=== PATIENT | male | born 1985 | race Caucasian/White ===

== ENCOUNTER 2016-04-12 17:28 | Emergency (ER) | payer MEDICAID ==
[~2016-04-12] VITALS: Ht 175.3 cm; Wt 123.5 kg
[2016-04-12 17:55] VITALS: Ht 175.3 cm; Wt 123.5 kg
[2016-04-12] MEDS ORDERED: AMO500 PO (19:01)
[2016-04-12] MEDS ORDERED: IBUP800T25 PO (19:02)
[2016-04-12] MEDS ORDERED: CARB15DR48 LEFT EAR (19:02)
--- NOTE | 2016-04-12 19:08 | ERD ---
ER Documentation Chief Complaint Date/Time DATE: 04/12/16 TIME: 19:03 Chief Complaint r ear pain HPI This is 31-year-old male who presents to the emergency room today complaining of right ear pain for the past 3 days. Patient states that one week ago he was cleaning ears with ear wax and a Skelaxin further. States that he did get some [id number] drops to remove the wax which has helped significantly however he is now complaining of ear pain for the past 3 days. States he also has some jaw pain. Denies any fevers or chills. ROS All systems reviewed and are negative except as per history of present illness. Medications Home Meds Active Scripts Ibuprofen* (Motrin*) 800 Mg Tab, 800 MG PO Q6, #30 TAB Prov:CADY HARDWICK PA-C 04/12/16 Carbamide Peroxide* (Debrox*) 6.5% - 15 Ml Drops, 10 DROP LEFT EAR BID, #1 BOTTLE Prov:CADY HARDWICK PA-C 04/12/16 Amoxicillin* (Amoxicillin*) 500 Mg Cap, 500 MG PO TID for 7 Days, CAP Prov:CADY HARDWICK PA-C 04/12/16 Physical Exam Vitals Vital Signs Date Time Temp Pulse Resp B/P Pulse Ox O2 Delivery O2 Flow Rate FiO2 04/12/16 17:55 98.6 92 18 140/89 100 Physical Exam Const: No acute distress Head: Atraumatic Eyes: Normal Conjunctiva ENT: Right ear with TM erythema. Left ear with evidence of cerumen. Nontender mastoid. Nose no drainage. Throat no erythema no exudate Neck: Full range of motion..~ No meningismus. Resp: Clear to auscultation bilaterally Cardio: Regular rate and rhythm, no murmurs Abd: Soft, non tender, non distended. Normal bowel sounds Skin: No petechiae or rashes Neur: Awake and alert Psych: Normal Mood and Affect Procedures/MDM This 31-year-old male who presents to the emergency department today complaining of some right ear pain. On physical exam patient's right ear does have some TM erythema. There does not appear to be any purulent drainage at this time. I will give him a prescription for amoxicillin to treat possible otitis media versus TM perforation versus TM J dysfunction. Patient was also given Debrox drops to place only in his left ear for cerumen impaction. Patient is nontender mastoid not low suspicion for mastoiditis, sepsis, deep space infection. Patient was also given Motrin for pain to treat possible TMJ dysfunction. At this time the patient is stable for discharge and outpatient management. Patient should follow up with their PCP in the next 1-2 days. They may return to the emergency department sooner for any persistent or worsening of symptoms. Patient understood and agreed with the plan. Departure Diagnosis: Primary Impression: Right ear pain Condition: Fair Patient Instructions: Cerumen Impaction, Home Care, Otitis Media, Abx Tx (Adult ) Referrals: [facility] YOU HAVE RECEIVED A MEDICAL SCREENING EXAM AND THE RESULTS INDICATE THAT YOU DO NOT HAVE A CONDITION THAT REQUIRES URGENT TREATMENT IN THE EMERGENCY DEPARTMENT. FURTHER EVALUATION AND TREATMENT OF YOUR CONDITION CAN WAIT UNTIL YOU ARE SEEN IN YOUR DOCTORS OFFICE WITHIN THE NEXT 1-2 DAYS. IT IS YOUR RESPONSIBILITY TO MAKE AN APPOINTMENT FOR FOLOW-UP CARE. IF YOU HAVE A PRIMARY DOCTOR --you should call your primary doctor and schedule an appointment IF YOU DO NOT HAVE A PRIMARY DOCTOR YOU CAN CALL OUR PHYSICIAN REFERRAL HOTLINE AT IF YOU CAN NOT AFFORD TO SEE A PHYSICIAN YOU CAN CHOSE FROM THE FOLLOWING [facility] [address] [facility]. [facility] [address] [facility]. [facility] [address] [facility]. [facility] [address] [facility]. [facility] [address] [facility]. [facility]. [address] Additional Instructions: Call your primary care doctor TOMORROW for an appointment during the next 1-2 days.See the doctor sooner or return here if your condition worsens before your appointment time. Take antibiotics as prescribed Take Motrin or Tylenol for pain Use Debrox drops in left ear only CADY HARDWICK PA-C Apr 12, 2016 19:08
== END 2016-04-12 19:03 | disposition home or self-care (01) ==
LOC: FTE 17:28 → E/R 19:03
DX: H92.01 Otalgia, right ear (principal)
CPT/HCPCS: 99283

== ENCOUNTER 2018-01-31 06:37 | Emergency (ER) | END 2018-01-31 08:29 | disposition left against medical advice (07) ==